=== PATIENT | female | born 1955 | race Caucasian/White ===

== ENCOUNTER 2025-07-12 10:11 | Outpatient (RCR) | payer MEDICARE, OTHER, SELFPAY | END 2025-07-12 11:33 | disposition home or self-care (01) | LOC: HO.PT 10:11 | PROVIDERS: PCP Internal Medicine; Visit Provider Nurse Practitioner Family | DX: N81.84 Pelvic muscle wasting (principal) | CPT/HCPCS: 97110; 97112; 97140; 97162 ==